=== PATIENT | female | born 1990 | race Caucasian/White ===

== ENCOUNTER → 2020-01-06 08:10 | Outpatient (CLI) | payer BC, SELFPAY ==
--- NOTE | ~2020-01-06 | MMUS_ITS ---
EXAMINATION: MM diagnostic jessica BI w nona, US breast LT limited HISTORY: Lower inner quadrant left breast lump for one and half months, diminishing in size TECHNIQUE: ML, MLO and cc full field 3-D tomosynthesis images of both breasts were performed and synt hetic 2-D images were generated. Additional spot 3-D Tomosynthesis images of left breast lower inner quadrant. Exaggerated medial craniocaudal views of both breasts. CAD analysis was submitted and inter preted. High resolution lower inner quadrant left breast ultrasound was performed. COMPARISON: None BREAST PARENCHYMAL COMPOSITION: The breasts are heterogeneously dense, which may obscure small masses . FINDINGS: MAMMOGRAPHIC FINDINGS: No suspicious mass or architectural distortion in either breast is evident. No malignant calcificatio n, skin thickening or retraction. ULTRASOUND: No solid mass or suspicious shadowing is detected. No abnormality is noted 8:00 4.5 cm from the nippl e where the patient complains of a lump. IMPRESSION: 1. No mammographic evidence of malignancy 2. Routine mammographic screening beginning at age 40 is recommended unless there are earlier symptom s or physical findings BI-RADS Category 1: Negative Reviewed, dictated and finalized at location A. IMPRESSION: 1. No mammographic evidence of malignancy 2. Routine mammographic screening beginning at age 40 is recommended unless the re are earlier symptoms or physical findings BI-RADS Category 1: Negative
== END ==
PROVIDERS: PCP Internal Medicine; Visit Provider Obstetrics & Gynecology
DX: N63.24 Unspecified lump in the left breast, lower inner quadrant (principal)
CPT/HCPCS: 76642; 77062; 77066; G0279

== ENCOUNTER 2020-02-04 09:19 | Outpatient (NON) | payer BC, SELFPAY ==
[2020-02-04 21:01] LABS: SARS-CoV-2 RNA PCR Negative
== END 2020-02-04 09:20 ==
LOC: ANHCOVIDDT 09:21
PROVIDERS: PCP Internal Medicine; Visit Provider Internal Medicine
DX: J06.9 Acute upper respiratory infection, unspecified (principal); R05 Cough; Z20.828 Contact with and (suspected) exposure to other viral communicable diseases
CPT/HCPCS: 87635; C9803; U0003

== ENCOUNTER → 2021-06-16 13:58 | Outpatient (CLI) | payer BC, SELFPAY ==
--- NOTE | ~2021-06-16 | US_ITS ---
EXAMINATION: US thyroid DATE: 06/16/2021 14:17 INDICATION: Thyromegaly. TECHNIQUE: Multiple ultrasound images of the thyroid were obtained. COMPARISON: None. FINDINGS: The right thyroid lobe measures 4.4 x 2.3 x 1.5 cm. The left thyroid lobe measures 4.8 x 2.0 x 1.7 c m. The thyroid demonstrates heterogeneous echogenicity and increased vascularity. In the right thyro id lobe, there is a 2.1 cm solid, isoechoic, sprwx-foiu-oaoh nodule with smooth margin without echoge floridalma foci (TI-RADS TR3). IMPRESSION: 1. Heterogeneous, hypervascular thyroid, consistent with chronic lymphocytic (Nataly) thyroiditis. 2. 2.1 cm right thyroid nodule. Follow-up ultrasound is recommended in one year. Reviewed, dictated and finalized at location A. IMPRESSION: 1. Heterogeneous, hypervascular thyroid, consistent with chronic lymphocytic (H ashimoto) thyroiditis. 2. 2.1 cm right thyroid nodule. Follow-up ultrasound is recommended in one year .
== END ==
PROVIDERS: PCP Internal Medicine; Visit Provider Obstetrics & Gynecology
DX: E04.1 Nontoxic single thyroid nodule (principal)
CPT/HCPCS: 76536

== ENCOUNTER → 2022-10-18 07:49 | Outpatient (CLI) | payer BC, SELFPAY ==
--- NOTE | ~2022-10-18 | US_ITS ---
Thyroid ultrasound. Clinical History: Thyroid nodule COMPARISON: 06/16/2021 Findings: Real-time sonography of the thyroid gland was performed. The right lobe measures 5.1 x 2.1 x 1.9 cm. The left lobe measures 5.1 x 2.1 x 2.0 cm. The isthmus is 3 mm in AP diameter. There is a 0.9 x 0.5 x 1.3 cm isoechoic solid circumscribed nodule at the right side of the isthmus. There is a 2.9 x 1.8 x 2.0 cm hyperechoic to isoechoic solid nodule at the left mid to upper pole. Impression: Bilateral thyroid nodules, as detailed above, which appear to be mildly increased in size from prior exam. Given the size of the dominant left-sided lesion at this time, FNA should be considered to esta blish a histologic diagnosis. Reviewed, dictated and finalized at [facility]. Impression: Bilateral thyroid nodules, as detailed above, which appear to be mildly increas ed in size from prior exam. Given the size of the dominant left-sided lesion at this time, FNA should be considered to establish a histologic diagnosis.
== END ==
PROVIDERS: PCP Internal Medicine; Referring Provider Obstetrics & Gynecology; Visit Provider Otolaryngology
DX: E04.1 Nontoxic single thyroid nodule (principal)
CPT/HCPCS: 76536

== ENCOUNTER 2023-04-10 17:35 | Observation (INO) | payer BC, SELFPAY ==
[2023-04-10 17:59] VITALS: BP 127/77; PULSE 104
[2023-04-10 18:01] VITALS: BP 127/83; PULSE 100
[2023-04-10 18:15] VITALS: BP 131/83; PULSE 110
[2023-04-10 18:30] VITALS: BP 134/83; PULSE 114
--- NOTE | 2023-04-10 18:41 | PC.NURSE ---
Pt denies feeling contractions.
--- NOTE | 2023-04-10 18:43 | PC.NURSE ---
Updated Dr. Reis on pt, orders received to perform SVE and discharge if SVE is the same as office visit and give instructions when to return to the unit.
[2023-04-10 18:45] VITALS: BP 128/79; PULSE 89
[2023-04-10 18:51] VITALS: BP 127/77; PULSE 104
--- NOTE | 2023-04-10 18:51 | PC.NURSE ---
Orders received to perform SVE, pt is closed on the exam.
[2023-04-10 19:10] VITALS: BMI 34.2
--- NOTE | 2023-04-10 19:12 | OBADM ---
This patient, Rita Patel, admitted to the OB room OB Post 117 for observation. Patient/family oriented to hospital policies and general routines including ID bracelet, bed and alarms, visiting hours, pain management, procedures, bathroom and other care routines, personal items, smoking policy, room service/diet, and visiting hours. Patient/Family are encouraged to report perceived risks to care and to ask questions if they do not understand what they are told or what they should do.
--- NOTE | 2023-04-19 05:37 | PM.OBTRLD ---
OB - Triage/Final Diagnosis Visit Information Comments/Additional reasons for admission: I have assessed the risk for this patient, Rita Patel, and determined that she would benefit from observation care. Final Diagnosis (1) Abdominal pain affecting : Code(s): O26.899 - Other specified related conditions, unspecified trimester; R10.9 - Unspecified abdominal pain Status: Acute
== END 2023-04-10 19:22 | disposition home or self-care (01) ==
PROVIDERS: Admitting Provider Obstetrics & Gynecology; PCP Internal Medicine; Visit Provider Obstetrics & Gynecology
DX: O26.893 Other specified pregnancy related conditions, third trimester (principal); R10.9 Unspecified abdominal pain; Z3A.37 37 weeks gestation of pregnancy
CPT/HCPCS: 59025; G0378; G0379

== ENCOUNTER 2023-04-20 11:54 | Outpatient (CLI) | payer BC, SELFPAY ==
[2023-04-20 12:14] LABS: Hematocrit 33.3 % (37.0-47.0); Hemoglobin 10.6 g/dL (12.0-15.0); Mean Corpuscular HGB Conc 31.8 g/dl (32-36); Mean Corpuscular Hemoglobin 29.4 pg (26-34); Mean Corpuscular Volume 92.2 fl (80-100); Mean Platelet Volume 9.6 fl (7.4-10.4); Platelet Count Result 242 k/mm3 (150-375); Red Blood Count 3.61 M/mm3 (4.2-5.4); White Blood Count 11.3 K/mm3 (4.5-10.0)
[2023-04-22 13:42] LABS: Rapid Plasma Reagin Non-Reactive (NonReactive)
== END 2023-04-20 11:55 | disposition home or self-care (01) ==
LOC: ANHLAB 11:58
PROVIDERS: PCP Internal Medicine; Visit Provider Obstetrics & Gynecology
DX: O82 Encounter for cesarean delivery without indication (principal); Z3A.00 Weeks of gestation of pregnancy not specified
CPT/HCPCS: 36415; 85027; 86592; 86850; 86900; 86901

== ENCOUNTER 2023-04-22 09:51 | Inpatient (IN) | payer BC, SELFPAY ==
[2023-04-22] VITALS (46 sets, daily range): BP systolic 103–136; BP diastolic 56–88; PULSE 73–103; RESP 12–18; TEMP 36.4–37; O2SAT 95–100; BMI 34.2
[2023-04-22] MEDS: ACETAMINOPHEN 500 MG TABLET 1000 MG PO (10:23)
[2023-04-22] MEDS: LACTATED RINGERS 1,000 ML 125 ML IV CONT ×2 (10:28→11:36)
--- NOTE | 2023-04-22 10:39 | LDADM ---
This patient, Rita Patel, was admitted to Labor/Delivery/Recovery 120 on 04/22/23 at 09:51. Plans for , pain management and were discussed with patient. Patient/family oriented to hospital policies and general routines including ID bracelet, bed and alarms, visiting hours, pain management, procedures, bathroom and other care routines, personal items, smoking policy, room service/diet and guest tray routines, infant security routines, and visiting hours. Patient/Family are encouraged to report perceived risks to care and to ask questions if they do not understand what they are told or what they should do. See OBIX for further documentation.
--- NOTE | 2023-04-22 11:01 | WPDANESEPPF ---
Anes - Initial Pre Proc Eval Procedure: Operation Date: 04/22/23 12:00 Proposed Procedures p Repeat Section - Cedrick Reis MD Date/Time: 04/22/23 11:01 Surgeon: Cedrick Reis MD Pre Op Diagnosis: Repeat C Section Patient Data Age: 33 Gender: F Height: 1.7 m Weight: 99 kg Last Vital Signs Pulse 94 04/22/23 10:43 BP 136/84 04/22/23 10:43 O2 Del Method Room Air 04/22/23 10:37 Allergies Allergy/AdvReac Type Severity Reaction Status Date / Time No Known Allergies Allergy Verified 06/28/21 13:00 Home Medications Medication Instructions Recorded Confirmed Type cholecalciferol (vitamin D3) 250 5,000 unit PO WEEKLY 06/28/21 04/22/23 History mcg (10,000 unit) capsule levothyroxine 112 mcg tablet See Rx Instructions .Route .COMPLEX 04/15/23 04/15/23 History (Synthroid) levothyroxine 50 mcg tablet See Rx Instructions .Route .COMPLEX 04/15/23 04/22/23 History (Synthroid) prenat.vits,kulwinder,qmm-gdbr-lxcwc 1 tablet PO DAILY 04/15/23 04/22/23 History Patient hx anesthesia problems: none Family hx anesthesia problems: none Results Review: All pre-operative results and documents have been reviewed as part of the pre-operative evaluation. [facility] Past Medical History Medical History (Updated 04/22/23 @ 11:02 by Lobito Albert MD) Hypothyroid Surgical History Surgical History (Updated 04/22/23 @ 11:02 by Lobito Albert MD) History of section Family History Family History Mother Alcoholism Asthma Diabetes mellitus Depression Thyroid disorder Grandparent Asthma Primary cancer of kidney Thyroid disorder Depression Social History Social History Smoking status: Never smoker Alcohol intake: never Substance use: never Do You Feel Safe in your Home?: Yes Lack of Transportation: No Lack of Food: Never True Current Housing: I Have Housing Concerned About Future Housing: No Difficulty Paying Gas/Electric Bills: No Difficulty Paying for Meds: No Currently Unemployed: No Education: Associate Degree Difficulty w/ Childcare or Family Care: No Spiritual care concerns: No Anes - Eval Final PreProcedure Day of Procedure 04/22/23 11:01 Patient weight: obese Heart: regular rate and rhythm Lungs: clear to auscultation Airway: Mallampati scale class 1 Neurological: alert and oriented Last oral intake: >/= 8 hours ASA classification: II Emergent: no Anesthetic plan: proceed Anesthesia type and monitoring: regional spinal and standard monitoring Results Review: All pre-operative results and documents have been reviewed as part of the pre-operative evaluation. Informed Consent: The patient's anesthetic plan and its attendant risks and benefits were discussed with the patient/family/POA. Questions were solicited and answers provided to the satisfaction of the patient/family/POA.
--- NOTE | 2023-04-22 11:35 | PM.IMHP ---
H&P: HPI History of Present Illness Date/Time: 04/22/23 11:35 Chief Complaint: Here for repeat c section Narrative: 33 y/o at 39 2/7 weeks here for repeat . complicated by hypothyroidism and thyroid nodules, benign on FNA. GBS neg. No contractions. Good movement. No leakage of fluid or vaginal bleeding. Review of Systems Review of Systems: All systems reviewed & are unremarkable except as noted in HPI and below PMFSH Past Medical History Medical History (Updated 04/22/23 @ 11:38 by Cedrick Reis MD) Hypothyroid Surgical History Surgical History (Updated 04/22/23 @ 11:38 by Cedrick Reis MD) History of section Family History Family History Mother Alcoholism Asthma Diabetes mellitus Depression Thyroid disorder Grandparent Asthma Primary cancer of kidney Thyroid disorder Depression Social History Social History Smoking status: Never smoker Alcohol intake: never Substance use: never Do You Feel Safe in your Home?: Yes Lack of Transportation: No Lack of Food: Never True Current Housing: I Have Housing Concerned About Future Housing: No Difficulty Paying Gas/Electric Bills: No Difficulty Paying for Meds: No Currently Unemployed: No Education: Associate Degree Difficulty w/ Childcare or Family Care: No Spiritual care concerns: No Meds Home Medications and Allergies Home Medications Medication Instructions Recorded Confirmed Type cholecalciferol (vitamin D3) 250 5,000 unit PO WEEKLY 06/28/21 04/22/23 History mcg (10,000 unit) capsule levothyroxine 112 mcg tablet See Rx Instructions .Route .COMPLEX 04/15/23 04/15/23 History (Synthroid) levothyroxine 50 mcg tablet See Rx Instructions .Route .COMPLEX 04/15/23 04/22/23 History (Synthroid) prenat.vits,kulwinder,tuw-imly-mywrg 1 tablet PO DAILY 04/15/23 04/22/23 History Allergies Allergy/AdvReac Type Severity Reaction Status Date / Time No Known Allergies Allergy Verified 06/28/21 13:00 Vital Signs Vital Signs - 24 hr 04/22/23 10:37 04/22/23 10:43 Pulse Rate 94 Blood Pressure 136/84 Oxygen Delivery Room Air Exam Const: Orientation/consciousness: patient oriented x3 Other: Well-developed, well-nourished female in no acute distress. Neck: Thyroid: thyroid normal Lymphatic: no lymphadenopathy noted (in neck, axilla or inguinal nodes) Resp: Effort & Inspection: normal respiratory effort Auscultation: clear to auscultation bilaterally Cardio: Rate: regular rate Rhythm: regular rhythm Heart sounds: S1 normal heart sound present and S2 normal heart sound present GI: Other: ABD: Soft, nontender, nondistended, gravid. NST reactive. TOCO: rare contractions. No guarding or rebound tenderness. No hepatosplenomegaly. : General: Yes no CVA tenderness Other: Cervix closed, thick Back/Spine/Pelvis: Back: no CVA tenderness Skin: General skin exam: normal color and no rashes or lesions noted Neuro: General: patient oriented x3 Extrem: Other: Extremities: nontender with no edema Psych: Mental Status: mental status grossly normal Affect: normal affect Assessment and Plan Assessment and plan (1) Term : Code(s): Z34.90 - Encounter for supervision of normal , unspecified, unspecified trimester Status: Acute Assessment and Plan: A: IUP at 39 2/7 weeks gestation with prior , desiring repeat. P: Offered repeat . She understands risks of surgery to include risks of anesthesia, risks of pain, infection, bleeding, blood products, thromboembolic phenomena and damage to adjacent structures such as bowel, bladder, ureters, blood vessels and nerves. She understands all these risks and elects to proceed with surgery. (2) History of section:
[2023-04-22] MEDS: FAMOTIDINE 20 MG/2 ML VIAL IV PUSH (11:36)
[2023-04-22] MEDS: ONDANSETRON INJ 4 MG/2 ML VIAL IV PUSH ×2 (11:36→18:30)
--- NOTE | 2023-04-22 11:38 | WPDHPUPDATE1 ---
History and Physical Update Update Date/Time: 04/22/23 11:38 History and Physical has been reviewed, including an updated exam of the patient. There are NO changes in the patient's condition. Risks, benefits, and alternatives have been discussed and questions answered. Patient agrees to proceed with procedure.
[2023-04-22] MEDS: ceFAZolin 2 GM/D5W 50 ML 2 GM/50 ML BAG IVPB (12:07)
--- NOTE | 2023-04-22 13:08 | W.PM.OBCSD ---
OB - Delivery Note Procedure Delivery date: 04/22/23 Pre-op diagnosis: Previous Delivery Post-op Diagnosis: Same Delivery monitor: External FHT and External Uterine Procedure Performed: Repeat (Repeat low transverse delivery) Surgeon: Cedrick Reis MD Anesthesia type: Spinal Description of Procedure/Findings: Findings: Normal-appearing uterus, tubes and ovaries. Techniques: The patient was taken to the operating room where she was prepared and draped in the usual sterile fashion in dorsal supine position with a leftward tilt. She received cefazolin preoperatively. Spinal anesthesia was found to be adequate. A Pfannenstiel skin incision was made along the previous scar line and was carried through to the underlying layer of the fascia. The fascia was incised in the midline and the incision was extended laterally. The fascia was dissected free of the underlying rectus muscles. The rectus muscles were in the midline. The peritoneum was identified, tented up and entered sharply. The peritoneal incision was extended superiorly and inferiorly with good visualization of the bladder. The bladder blade was placed. The vesicouterine peritoneum was identified, tented up and entered sharply. The incision was extended laterally and the bladder flap was developed. The bladder blade was replaced. The uterus was then incised sharply in a transverse fashion along the lower uterine segment. The incision was extended laterally. The 's head was delivered atraumatically to the sterile field, followed by the body. The nose and mouth were bulb suctioned. After a delay, the cord was clamped and cut. The was handed off the field. Cord blood was collected. The placenta was removed manually and was passed off the field. The uterus was exteriorized and cleared of all clots and debris. The uterine incision was reapproximated using 0 Monocryl in a running, locked fashion. Excellent hemostasis resulted as did excellent reapproximation of the normal anatomy. The uterus was returned the abdomen. The pelvis was irrigated copiously with warmed normal saline. Rigorous hemostasis was assured. The fascial layer was reapproximated using 0 Vicryl in a running fashion. The skin was closed with a running, subcuticular stitch of 4 0 Vicryl. Dermaflex was applied externally. Sponge, lap, needle and instrument counts were correct. The patient was taken to the recovery room in stable condition. The infant went to the nursery in stable condition. I was present and scrubbed the entire procedure. Specimen: Yes (cord blood) Estimated Blood Loss: 415 Drains: Yes (martin) Packing: No Pathology: None sent Complications: None Condition: Stable Disposition: PACU [place] [facility] Date of : 04/22/23 Time of : 12:37 Weeks of gestation at delivery: 39 Infant gender: Male Weight (pounds): 10 Weight (ounces): 6 presentation: vertex Placenta delivery description: Manual Removal and Normal Configuration Cord Vessel Description: 3 Vessels score one minute: 8 score five minutes: 9
--- NOTE | 2023-04-22 13:11 | PM.OBDSVD ---
DS: Admitting Diagnosis Discharge Date 04/25/23 Admitting Diagnosis IUP at 39 2/7 weeks Prior DS: Discharge Diagnosis Discharge Diagnosis (1) delivery delivered: Code(s): O82 - Encounter for delivery without indication Status: Acute OB - DS: Summary OB Procedures : None OB Procedures Intrapartum: OB Procedures: : None Peripartum Data Procedures: Procedures Operation Date: 04/22/23 12:00 <No data on this case meets the specified criteria> Repeat low transverse delivery Time Spent with Patient Time attestation: Total time spent providing and/or coordinating discharge services: Discharge Plan Discharge Attending physician on discharge: Cedrick Reis Discharging Clinician: Cedrick Reis Patient Disposition: Home, Self-Care Activity: may shower, may drive after 2 weeks and pelvic rest Diet: regular Wound Care Instructions: incision open to air Discharge Instructions: Call or return if temperature above 100.4? F, increased abdominal pain, increased vaginal bleeding or any new problems. Stand Alone Forms: General Discharge Information Follow-up/Referrals: Cedrick Reis MD [Physician] - 4 Weeks Discharge Medications: New ibuprofen 600 mg tablet 600 mg PO Q6H PRN (Reason: cramps) Qty: 30 0RF hydrocodone-acetaminophen 5-325 mg tablet 1 - 2 tablet PO Q6H PRN (Reason: pain) Qty: 30 0RF ferrous sulfate 325 mg (65 mg iron) tablet 325 mg PO DAILY Qty: 30 0RF Continued cholecalciferol (vitamin D3) 250 mcg (10,000 unit) capsule 5,000 unit PO WEEKLY levothyroxine [Synthroid] 50 mcg tablet See Rx Instructions .ROUTE .COMPLEX Rx Instructions: 75 mcg orally ;75 mcg orally X4 DAYS PER WEEK levothyroxine [Synthroid] 112 mcg Tablet See Rx Instructions .ROUTE .COMPLEX Rx Instructions: 112 mcg orally X3D WEEK #2 Tablet 1 tablet PO DAILY Date of admission: 04/22/23 09:51 Primary Care Provider: JaysonEvan Admitting Provider: Cedrick Reis Attending physician on admission: Cedrick Reis Condition: Stable
[2023-04-22] MEDS: OXYTOCIN 30 UNITS/NS 500 ML 30 UNITS/500 ML BAG 125 UNITS IV CONT (14:19)
[2023-04-22] MEDS: KETOROLAC 15 MG/ML VIAL (*BKC) IV PUSH ×2 (15:45→22:36)
--- NOTE | 2023-04-22 17:48 | OBPPTRN ---
1600 Patient transferred to post room #281 via stretcher. Support person present. Oriented to unit, room, information board, rooming in, admission packet and security measures. Patient verbalizes understanding.
[2023-04-22] MEDS: DEXTROSE 5%/0.45% SOD CHL 1,000 ML 125 ML IV CONT (18:31)
--- NOTE | 2023-04-22 18:48 | PHAR ---
RX [id number] IDENTIFIED TO CONTAIN SYNTHROID 75MCG INDIVIDUALIZED UNIT DOSE PACKAGES DIRECTIONS ON BOTTLE STATE 1 TAB 4 DAYS A WEEK AND 1&1/2 TABLETS SATURDAY, SATURDAY AND SATURDAY
[2023-04-22] MEDS: ACETAMINOPHEN 325 MG TABLET 650 MG PO (22:36)
[2023-04-23 01:00] VITALS: BP 111/65; PULSE 77; RESP 18; TEMP 37.1; O2SAT 97
[2023-04-23] MEDS: KETOROLAC 15 MG/ML VIAL (*BKC) IV PUSH ×2 (04:50→11:04)
[2023-04-23] MEDS: ACETAMINOPHEN 325 MG TABLET 650 MG PO (04:50)
[2023-04-23 06:07] LABS: Basophils Percent Auto 0.3 % (0.2-1.2); Eosinophils Absolute Auto 0.1 K/mm3 (0-0.3); Eosinophils Percent Auto 1.1 % (0-4.4); Hematocrit 27.2 % (37.0-47.0); Hemoglobin 8.7 g/dL (12.0-15.0); Immature Granulocyte Absolute 0.05 K/mm3 (0.00-0.031); Immature Granulocyte Percent A 0.5 % (0-0.5); Lymphocytes Absolute Auto 1.91 K/mm3 (0.9-3.2); Lymphocytes Percent Auto 17.3 % (18.3-44.2); Mean Corpuscular Hemoglobin 29.8 pg (26-34); Mean Corpuscular Volume 93.2 fl (80-100); Mean Platelet Volume 9.9 fl (7.4-10.4); Monocytes Absolute Auto 0.9 K/mm3 (0.1-0.6); Monocytes Percent Auto 8.4 % (2.6-8.5); Neutrophils Percent Auto 72.4 % (45.5-73.1); Platelet Count Result 184 k/mm3 (150-375); Red Blood Count 2.92 M/mm3 (4.2-5.4); Red Cell Distribution Width 14.2 % (11.5-14.5)
[2023-04-23] MEDS: POLYSACCHARIDE IRON COMPLEX 150 MG CAPSULE PO ×2 (07:49→15:52)
[2023-04-23] MEDS: DOCUSATE SODIUM 100 MG CAPSULE PO ×2 (07:50→15:53)
[2023-04-23] MEDS: HYDROcodone/acetaminophen (*CRX) 10-325 MG TABLET 1 TAB PO (07:50)
[2023-04-23] MEDS: SIMETHICONE 80 MG TAB.CHEW PO ×3 (07:50→15:53)
[2023-04-23 08:10] VITALS: BP 108/70; PULSE 85; RESP 16; TEMP 37.2; O2SAT 99
--- NOTE | 2023-04-23 11:04 | WPDANLDPN2 ---
Anes-Prog Note L&D Date/Time: 04/23/23 11:04 Comfortable throughout: section Neuraxial method: spinal Epidural/Spinal procedure site: clean & non-tender Neuro status: Neuro function grossly intact. Cardiovascular status: normal Respiratory status: normal Airway patency: baseline Mental status: baseline Post-Op hydration status: normal Vital Signs: Last Vital Signs Temp 37.2 C 04/23/23 08:10 Pulse 85 04/23/23 08:10 Resp 16 04/23/23 08:10 BP 108/70 04/23/23 08:10 Pulse Ox 99 04/23/23 08:10 O2 Del Method Room Air 04/22/23 13:08 Pain score (VAS): 3/10 I/O: Intake & Output 04/22/23 04/23/23 04/23/23 23:59 07:59 15:59 Intake Total 500 1050 Output Total 400 7975 900 Balance 100 -825 -900 Post-procedural complaints: none Patient feedback: Patient satisfied with anesthetic care.
--- NOTE | 2023-04-23 11:04 | WPDANLDNPN2 ---
Anes-Prog Note L&D-Neuraxial Date/Time: 04/23/23 11:04 Neuraxial medications: intrathecal PF morphine Opiod-related complaints: nausea mild, no treatment Patient feedback: Patient satisfied with post-operative pain management.
[2023-04-23] MEDS: HYDROcodone/acetaminophen (*CRX) 5-325 MG TABLET 1 TAB PO ×3 (11:05→19:16)
[2023-04-23 12:03] VITALS: BP 105/65; PULSE 82; RESP 16; TEMP 37; O2SAT 98
--- NOTE | 2023-04-23 12:17 | P.PNOB_ITS ---
OB - PN: Subj Subjective Date/time seen: 04/23/23 12:17 Narrative: Pain OK. Tolerating diet. Would like circumcision for son. OB - PN: Obj Data Labs 04/23/23 05:21 Labs: Laboratory Results - last 24 hr 04/23/23 05:21 WBC 11.0 H RBC 2.92 L Hgb 8.7 L Hct 27.2 L MCV 93.2 MCH 29.8 MCHC 32.0 RDW 14.2 Plt Count 184 MPV 9.9 Immature Gran % (Auto) 0.5 Neut % (Auto) 72.4 Lymph % (Auto) 17.3 L [place] % (Auto) 8.4 Eos % (Auto) 1.1 Baso % (Auto) 0.3 Lymph # (Auto) 1.91 [place] # (Auto) 0.9 H Eos # (Auto) 0.1 Baso # (Auto) 0.0 Abs Immat Gran (auto) 0.05 H Absolute Neuts (auto) 8.0 H Absolute Nucleated RBC 0.0 Nucleated RBC % 0.0 OB - PN A/P Plan Comments: A: POD#1, doing well. P: Reviewed circ. Routine care. Exam Narrative: AVSS I/O OK ABD soft, nontender, fundus firm. Incision c/d/i. EXT nontender
[2023-04-23] MEDS: IBUPROFEN 600 MG TABLET PO ×2 (15:54→21:32)
[2023-04-23 20:26] VITALS: BP 113/77; PULSE 86; RESP 18; TEMP 36.8; O2SAT 96
[2023-04-24] MEDS: HYDROcodone/acetaminophen (*CRX) 5-325 MG TABLET 1 TAB PO ×6 (02:52→20:32)
[2023-04-24] MEDS: SIMETHICONE 80 MG TAB.CHEW PO ×3 (08:11→17:29)
[2023-04-24] MEDS: MULTIVIT/MIN/PREN/FOL AC/IRON TABLET 1 TAB PO (08:12)
[2023-04-24] MEDS: POLYSACCHARIDE IRON COMPLEX 150 MG CAPSULE PO ×2 (08:12→17:29)
[2023-04-24] MEDS: DOCUSATE SODIUM 100 MG CAPSULE PO ×2 (08:12→17:29)
[2023-04-24] MEDS: IBUPROFEN 600 MG TABLET PO ×3 (08:13→20:32)
[2023-04-24 08:16] VITALS: BP 127/79; PULSE 84; RESP 16; TEMP 36.5; O2SAT 98
--- NOTE | 2023-04-24 09:45 | PC.NURSE ---
On 04/24/23, the student, Adarsh Camarena, provided care and completed [facility] documentation on this patient. I have reviewed the student's documentation and agree with the findings.
[2023-04-24] MEDS: ACETAMINOPHEN 325 MG TABLET 650 MG PO ×3 (11:48→23:58)
--- NOTE | 2023-04-24 13:54 | PM.OBPNVD ---
OB - PN: Subj Subjective Date/time seen: 04/24/23 13:54 Narrative: Pain OK. Tolerating diet. OB - PN: Obj Data Labs 04/23/23 05:21 OB - PN A/P Plan day: 2 Comments: A: POD#2, doing well. P: Routine care. Plan home tomorrow. Exam Narrative: AVSS I/O OK ABD soft, nontender, fundus firm. Incision c/d/i. EXT nontender
--- NOTE | 2023-04-24 16:50 | PC.NURSE ---
[id number] Introductions were made. Mother verbalizes she is able to independently latch with appropriate positioning and alignment. She has nipple tenderness with no pain, responsively , has a long history with her first although challenging at first. Mother shared that her breast feel like the full volume milk is coming in. is currently meeting outcomes for weight, output, jaundice, blood sugar and feeding frequencies of 8-12 times in 24 hours. Questions, concerns and reviewing some of the behaviors were discussed. Mother is encouraged to call for assistance if her doesn?t latch, pain with latching, questions or concerns. Parents voiced understanding of information shared and name written on the communication board for inpatient assistance. Reported to the Primary RN.
[2023-04-24] MEDS: LIDOCAINE 5% PATCH 1 PATCH TRANSDERM (20:36)
[2023-04-24 20:58] VITALS: BP 114/79; PULSE 78; RESP 18; TEMP 37; O2SAT 97
[2023-04-25] MEDS: IBUPROFEN 600 MG TABLET PO ×2 (05:20→12:28)
[2023-04-25] MEDS: LIDOCAINE 5% PATCH 1 PATCH TRANSDERM (06:00)
[2023-04-25] MEDS: ACETAMINOPHEN 325 MG TABLET 650 MG PO ×2 (06:51→12:27)
[2023-04-25 07:25] VITALS: BP 132/88; PULSE 89; RESP 16; TEMP 37.3; O2SAT 89
--- NOTE | 2023-04-25 08:49 | PM.OBPNVD ---
OB - PN: Subj Subjective Date/time seen: 04/25/23 08:49 Narrative: Pain OK. Tolerating diet. Would like to go home. OB - PN: Obj Data Labs 04/23/23 05:21 OB - PN A/P Plan Comments: A: POD#3, doing well. P: Home to f/u 4 weeks. Exam Narrative: AVSS ABD soft, nontender, fundus firm. Incision c/d/i. EXT nontender
[2023-04-25] MEDS: MULTIVIT/MIN/PREN/FOL AC/IRON TABLET 1 TAB PO (09:58)
[2023-04-25] MEDS: SIMETHICONE 80 MG TAB.CHEW PO ×2 (09:58→12:27)
[2023-04-25] MEDS: POLYSACCHARIDE IRON COMPLEX 150 MG CAPSULE PO (09:58)
[2023-04-25] MEDS: DOCUSATE SODIUM 100 MG CAPSULE PO (09:58)
--- NOTE | 2023-04-25 10:29 | PC.NURSE ---
This patient, Rita Patel, was received from PACU via bed on 04/25/23 at 1048. Patient/family oriented to unit policies and routines
--- NOTE | 2023-04-25 15:25 | PC.NURSE ---
[id number] Mother led the conversation with her experience so far, plan to feed her , and her ability to independently latch optimally without discomfort. Mother is feeding appropriately for growth of and understands stimulating infant to eat if needed. has had appropriate feedings in the last 24 hours meets the outcomes for weight, output, blood sugar and jaundice at this time. Mother states she is confident to continue effectively her infant at home, when to call for assistance, denies any additional assistance or education at this time. Reinforced understanding of milk production, transition of milk, signs of adequate intake, transition of stool, prevention/relief of engorgement, plugged ducts, mastitis, responsive watching for feeding cues on demand about every 1-3 hours from the start of the last start, community resources, and when to call a provider using the resource of the feeding sheet and the mom and baby guide. Mother voiced understanding of the education shared.
[2023-04-26 10:24] VITALS: BP 129/85; PULSE 80; RESP 18; TEMP 37.3; O2SAT 97
== END 2023-04-25 14:25 | disposition home or self-care (01) | DRG 788 ==
LOC: ANHLDR 13:12 → ANHOB2 15:54
PROVIDERS: Admitting Provider Obstetrics & Gynecology; PCP Internal Medicine; Visit Provider Obstetrics & Gynecology
PROC: 10D00Z1 Extraction of Products of Conception, Low, Open Approach (ICD-10-PCS; CPT 59514; principal; 2023-04-22 12:00)
DX: O34.211 Maternal care for low transverse scar from previous cesarean delivery (principal); Z37.0 Single live birth; Z3A.39 39 weeks gestation of pregnancy; O99.284 Endocrine, nutritional and metabolic diseases complicating childbirth; E03.9 Hypothyroidism, unspecified; E04.1 Nontoxic single thyroid nodule
CPT/HCPCS: 36415; 85025; 85027; 86592; 86850; 86900; 86901; A9270; J0690; J1885; J2274; J2371; J2405; J2590; J7120

== ENCOUNTER 2023-12-26 08:18 | Outpatient (CLI) | payer BC, SELFPAY ==
--- NOTE | ~2023-12-26 | US_ITS ---
EXAMINATION: US thyroid DATE: 12/26/2023 08:40 INDICATION: Thyroid nodule. TECHNIQUE: Multiple ultrasound images of the thyroid were obtained. COMPARISON: Ultrasound 10/18/2022, 06/16/2021 FINDINGS: The right thyroid lobe measures 5.2 x 1.6 x 1.6 cm. The left thyroid lobe measures 4.9 x 1.8 x 2.5 c m. In the left thyroid lobe, there is a 2.9 cm solid, hyperechoic, wider than tall nodule with velasquez h margin without echogenic foci (TI-RADS TR3), stable from 10/18/22. The thyroid demonstrates heterogen eous echogenicity and increased vascularity. In the right thyroid isthmus, there is a 1.4 cm solid, i soechoic, wider than tall nodule with ill-defined margin without echogenic foci (TR3), increased from 9 mm on 10/18/22. IMPRESSION: 1. Heterogeneous, hypervascular thyroid, likely chronic lymphocytic (Nataly) thyroiditis. 2. Thyroid nodules. The patient reports a benign biopsy 1 year ago, presumably the larger nodule. No follow-up is needed. Reviewed, dictated and finalized at location A.
== END 2023-12-26 08:19 | disposition home or self-care (01) ==
LOC: MICIMG 08:19
PROVIDERS: PCP Internal Medicine; Visit Provider Surgery
DX: E04.2 Nontoxic multinodular goiter (principal)
CPT/HCPCS: 76536

== ENCOUNTER 2025-01-01 08:22 | Outpatient (CLI) | payer BC, SELFPAY ==
--- NOTE | ~2025-01-01 | US_ITS ---
Clinical history:Thyroid nodule EXAM:Ultrasound thyroid TECHNIQUE:Multiple static grayscale images and color Doppler images of the thyroid gland were obtained. Comparisons:12/26/2023, 10/18/2022, 06/16/2021 FINDINGS: Right thyroid lobe measures 5.3 x 1.8 x 1.5 cm and is heterogeneous. The thyroid lobe measures 5.3 x 2.0 x 2.2 cm and is heterogeneous. Isthmus measures 0.3 cm and is heterogeneous. Prominent vascular flow throughout the thyroid gland. There is a 1.0 x 0.5 x 1.3 cm hypoechoic solid nodule in the right thyroid lobe about the isthmus. Grossly stable size and configuration as compared to the study from 12/26/2023. There is a 3.0 x 1.6 x 2.2 cm partially cystic, partially solid nodule in the left thyroid lobe. Grossly stable size and configuration as compared to the study from 12/26/2023. IMPRESSION: 1.There is a 1.0 x 0.5 x 1.3 cm hypoechoic solid nodule in the right thyroid lobe about the isthmus. Grossly stable size and configuration as compared to prior studies. A follow-up thyroid ultrasound in 6 months is recommended. 2.There is a 3.0 x 1.6 x 2.2 cm partially cystic, partially solid nodule in the left thyroid lobe. Grossly stable size and configuration as compared to the study from 12/26/2023. However, the finding has increased in size as compared to the study from 2021 at which point it measured 1.7 x 2.1 x 1.7 cm. A fine-needle aspiration is recommended 3. The thyroid gland is heterogeneous with prominent vascular flow. Consider thyroiditis. Reviewed, dictated and finalized at location [facility]. IMPRESSION: 1.There is a 1.0 x 0.5 x 1.3 cm hypoechoic solid nodule in the right thyroid lo be about the isthmus. Grossly stable size and configuration as compared to prio r studies. A follow-up thyroid ultrasound in 6 months is recommended. 2.There is a 3.0 x 1.6 x 2.2 cm partially cystic, partially solid nodule in the left thyroid lobe. Grossly stable size and configuration as compared to the [facility] from 12/26/2023. However, the finding has increased in size as compared to the study from 2021 at which point it measured 1.7 x 2.1 x 1.7 cm. A fine-needl e aspiration is recommended 3. The thyroid gland is heterogeneous with prominent vascular flow. Consider th yroiditis.
== END 2025-01-01 08:23 | disposition home or self-care (01) ==
LOC: MICIMG 08:23
PROVIDERS: PCP Internal Medicine; Visit Provider Surgery
DX: E04.2 Nontoxic multinodular goiter (principal)
CPT/HCPCS: 76536